=== PATIENT | female | born 1945 | race Caucasian/White ===

== ENCOUNTER 2017-05-16 11:15 | Inpatient (IN) | payer MEDICARE, MEDICAID ==
[~2017-05-16] VITALS: Ht 165.1 cm; Wt 74.8 kg
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
--- NOTE | 2017-05-16 11:30 | NUR ---
EKG IN PROGRESS
--- NOTE | 2017-05-16 11:40 | NUR ---
XRAY AT BS
[2017-05-16 11:45] LABS: BASOPHILS # (AUTO) 0.1 /CMM (0.0-0.2); BASOPHILS % (AUTO) 1.5 % (0.0-2.0); EOSINOPHILS # (AUTO) 0.1 /CMM (0.0-0.7); EOSINOPHILS % (AUTO) 1.4 % (0.0-6.0); HEMATOCRIT 41 % (33-45); HEMOGLOBIN 13.9 g/dL (11.5-14.8); LYMPHOCYTES % (AUTO) 31.6 % (20.0-44.0); MEAN CORPUSCULAR HEMOGLOBIN 29 PG (26.0-33.0); MEAN CORPUSCULAR HGB CONC 34 g/dl (31.0-36.0); MEAN CORPUSCULAR VOLUME 86 fL (82-100); MONOCYTES # (AUTO) 0.5 /CMM (0.1-1.30); MONOCYTES % (AUTO) 5.7 % (2.0-12.0); NEUTROPHILS # (AUTO) 5.9 /CMM (1.8-8.9); NEUTROPHILS % (AUTO) 59.8 % (43.0-81.0); PLATELET COUNT (AUTO) 222 /CMM (150-450); RDW COEFFICIENT OF VARIATION 11.9 (11.5-15.0); RED BLOOD CELL COUNT(AUTO) 4.78 MIL/uL (4.0-5.2); WHITE BLOOD COUNT (AUTO) 9.6 K/uL (4.3-11.0)
[2017-05-16 11:59] LABS: ALANINE AMINOTRANSFERASE 26 U/L (12-78); ALBUMIN 3.5 g/dL (3.4-5.0); ALKALINE PHOSPHATASE 69 U/L (46-116); ASPARTATE AMINOTRANSFERASE 18 U/L (15-37); BILIRUBIN,DIRECT 0.1 mg/dL (0.0-0.2); BILIRUBIN,TOTAL 0.3 mg/dL (0.2-1.0); CALCIUM, SERUM 9.1 mg/dL (8.5-10.1); CARBON DIOXIDE 25 mmol/L (21-32); CHLORIDE 104 mmol/L (98-107); CREATININE 0.6 mg/dL (0.6-1.3); GLUCOSE 124 mg/dL (74-106); POTASSIUM 3.9 mmol/L (3.5-5.1); SODIUM SERUM 138 mmol/L (136-145); TOTAL PROTEIN, SERUM 6.8 g/dL (6.4-8.2); UREA NITROGEN, BLOOD 13 mg/dL (7-18)
[2017-05-16 12:00] LABS: TROPONIN I 0.022 ng/mL (0.00-0.056)
[2017-05-16 12:01] LABS: PROTHROMBIN TIME 10.4 SECS (9.5-12.7)
[2017-05-16] MEDS ORDERED: CLON0.1T PO (13:04)
[2017-05-16] MEDS ORDERED: SUCR1TAB PO (13:04)
[2017-05-16] MEDS ORDERED: NEBI10TA2 PO (13:04)
[2017-05-16] MEDS ORDERED: TEMA30CA PO (13:04)
[2017-05-16] MEDS ORDERED: CYCL30DR EACHEYE (13:04)
[2017-05-16] MEDS ORDERED: MECL-102 PO (13:04)
[2017-05-16] MEDS ORDERED: PREG50CA PO (13:04)
[2017-05-16] MEDS ORDERED: CLON1TAB4 PO (13:04)
[2017-05-16] MEDS ORDERED: AMYL1CAP63 PO (13:04)
[2017-05-16] MEDS ORDERED: TRAZ-144 PO (13:04)
[2017-05-16] MEDS ORDERED: RANI150T8 PO (13:04)
[2017-05-16] MEDS ORDERED: ESOM40CA PO (13:04)
[2017-05-16] MEDS ORDERED: LUBI24CA7 PO (13:04)
[2017-05-16] MEDS ORDERED: GABA-534 PO (13:04)
[2017-05-16] MEDS ORDERED: OLME1TAB2 PO (13:05)
--- NOTE | 2017-05-16 13:11 | NUR ---
MD GALLARDO AT BEDSIDE
[2017-05-16] MEDS ORDERED: ACETAMINOPHEN 325 MG TABLET PO PRN ×2 (14:00→14:30)
[2017-05-16] MEDS ORDERED: NITROGLYCERIN 0.4 MG/TAB BOTTLE SL PRN ×2 (14:00→14:30)
[2017-05-16] MEDS ORDERED: MORPHINE SULFATE INJ 2 MG/ML DISP.SYRIN IV PRN ×2 (14:00→14:30)
[2017-05-16] MEDS ORDERED: Z GUARD REMEDY 2 OZ OINT TP PRN ×2 (14:00→14:30)
[2017-05-16] MEDS ORDERED: MAG HYDROX/AL HYDROX/SIMETH 30 ML UDC PO PRN ×2 (14:00→14:30)
[2017-05-16] MEDS ORDERED: HYDROCODONE/APAP 5/325MG 1 EACH TABLET PO PRN (14:00)
[2017-05-16] MEDS ORDERED: ONDANSETRON HCL/PF 4 MG/2 ML VIAL IVP PRN ×2 (14:00→14:30)
[2017-05-16] MEDS ORDERED: LOSARTAN/HCTZ 50-12.5MG/ 1 EA TABLET PO ONE (14:00)
[2017-05-16] MEDS ORDERED: ZOLPIDEM TARTRATE 5 MG TABLET PO PRN ×2 (14:00→14:30)
[2017-05-16] MEDS ORDERED: MAGNESIUM HYDROXIDE 30 ML UDC PO PRN ×2 (14:00→14:30)
[2017-05-16] MEDS ORDERED: CLONIDINE HCL 0.1 MG TABLET PO PRN ×2 (14:00→14:30)
--- NOTE | 2017-05-16 14:19 | NUR ---
REPORT GIVEN TO ALE VELA FOR CONTINUITY OF CARE.
--- NOTE | 2017-05-16 14:39 | NUR ---
PATIENT TRANSPORTED TO TELE1. S
[2017-05-16 14:45] VITALS: BP 145/77
[2017-05-16] MEDS: PREGABALIN 25 MG CAPSULE PO SCH (15:00)
--- NOTE | 2017-05-16 15:00 | NUR ---
RN NOTES RECEIVED PATIENT IN BED ALERT, AWAKE, ORIENTED X4 WITH BREATHING NORMAL, EVEN AND UNLABORED. NO SOB NOTED. NO ACUTE DISTRESS NOTED. ON ROOM AIR, SATURATING WELL. TELE MONITOR REVEALS SR, HR =65. IV RAC IS PATENT AND INTACT, NO INFILTRATION NOTED. BOWEL SOUND PRESENT. PULSES PRESENT. SAFETY MEASURE OBSERVED. CALL LIGHT WITH IN REACH. WILL CONT TO MONITOR.
[2017-05-16] MEDS: HYDROCODONE/APAP 5/325MG 1 EACH TABLET PO PRN (15:08)
[2017-05-16] MEDS ORDERED: HYDROCHLOROTHIAZIDE 25 MG TABLET PO SCH (15:10)
[2017-05-16 16:00] VITALS: BP 145/77
[2017-05-16] MEDS: MECLIZINE HCL 25 MG TABLET PO SCH (16:16)
[2017-05-16] MEDS: LOSARTAN/HCTZ 50-12.5MG/ 1 EA TABLET PO SCH (16:16)
[2017-05-16] MEDS: GABAPENTIN 300 MG CAPSULE PO SCH (16:16)
[2017-05-16] MEDS ORDERED: Medication Not On Formulary EA (Lubiprostone (Amitiza) 24 MCG) PO SCH (17:00)
[2017-05-16] MEDS ORDERED: clonazePAM 1 MG TABLET PO SCH ×2 (17:00)
[2017-05-16] MEDS ORDERED: MECLIZINE HCL 25 MG TABLET PO SCH (17:00)
[2017-05-16] MEDS ORDERED: Medication Not On Formulary EA (Cyclosporine (Restasis) 1 DROP) EACHEYE SCH (17:00)
[2017-05-16] MEDS ORDERED: GABAPENTIN 300 MG CAPSULE PO SCH (17:00)
[2017-05-16] MEDS: LIPASE/PROTEASE/AMYLASE 1 EACH CAPSULE.DR PO SCH (19:11)
--- NOTE | 2017-05-16 19:20 | NUR ---
RN NOTES RECEIVED PATIENT IN BED AWAKE, ALERT/ORIENTED X4. VERBALLY RESPONSIVE. RESPIRATION IS NORMAL, EVEN AND UNLABORED. NO SOB NOTED. NO ACUTE DISTRESS NOTED. ON ROOM AIR, SATURATING WELL. TELE MONITOR REVEALS SR, HR :66. IV SITE ON RAC PATENT AND INTACT, NO INFILTRATION NOTED. SKIN IS INTACT. SAFETY MEASURES OBSERVED. CALL LIGHT WITH IN REACH. ALL NEEDS ATTENDED AND MET. CALL LIGHT WITHIN REACH WILL CONT TO MONITOR.
--- NOTE | 2017-05-16 19:36 | NUR ---
RN NOTES PATIENT ENDORSED TO NEXT SHIFT IN STABLE CONDITION FOR CONTINUITY OF CARE.
[2017-05-16 20:00] VITALS: BP 146/73
[2017-05-16] MEDS: clonazePAM 1 MG TABLET PO SCH (21:00)
[2017-05-16] MEDS: FAMOTIDINE (20 MG) 20 MG TABLET PO SCH (21:01)
[2017-05-16] MEDS: SUCRALFATE 1 G TABLET PO SCH (21:02)
[2017-05-17] VITALS: BP 130/55
--- NOTE | 2017-05-17 02:33 | NUR ---
PT ASLEEP AT THIS TIME. AROUSES EASILY. NO DISTRESS, NO SOB NOTED. NO C/O PAIN OR DISCOMFORT AT THIS TIME. CALL LIGHT WITHIN REACH. ALL NEEDS ATTENDED AND MET. SAFETY PRECAUTIONS OBSERVED. WILL CONT TO MONITOR.
[2017-05-17 04:00] VITALS: BP 131/70
--- NOTE | 2017-05-17 06:26 | NUR ---
RN NOTES PATIENT IN BED ASLEEP, AROUSES EASILY, ALERT/ORIENTED X4. VERBALLY RESPONSIVE. RESPIRATION IS EVEN AND UNLABORED. NO SOB NOR NO ACUTE DISTRESS NOTED. ON ROOM AIR, SATURATING WELL. TELE MONITOR REVEALS SR, HR :71 . IV SITE ON RAC PATENT AND INTACT, NO INFILTRATION NOTED. SKIN IS INTACT. PT IS AMBULATORY. SAFETY PRECAUTIONS OBSERVED. NO C/O PAIN OR DISCOMFORT. CALL LIGHT WITH IN REACH. ALL NEEDS ATTENDED AND MET. CALL LIGHT WITHIN REACH WILL ENDORSE TO NEXT SHIFT FOR ARIANA.
[2017-05-17] MEDS ORDERED: PANTOPRAZOLE 40 MG TABLET.DR PO SCH (07:30)
[2017-05-17 08:00] VITALS: BP 125/74
[2017-05-17] MEDS: LIPASE/PROTEASE/AMYLASE 1 EACH CAPSULE.DR PO SCH ×3 (08:35→17:50)
[2017-05-17] MEDS: PANTOPRAZOLE 40 MG TABLET.DR PO SCH (08:36)
[2017-05-17] MEDS: LOSARTAN/HCTZ 50-12.5MG/ 1 EA TABLET PO SCH (08:37)
[2017-05-17] MEDS: SUCRALFATE 1 G TABLET PO SCH ×4 (08:37→21:40)
[2017-05-17] MEDS: clonazePAM 1 MG TABLET PO SCH ×5 (08:38→21:41)
[2017-05-17] MEDS: ASPIRIN 81 MG TAB.CHEW PO SCH (08:39)
[2017-05-17] MEDS: MECLIZINE HCL 25 MG TABLET PO SCH ×3 (08:39→17:50)
[2017-05-17] MEDS: FAMOTIDINE (20 MG) 20 MG TABLET PO SCH ×2 (08:39→21:40)
[2017-05-17] MEDS: GABAPENTIN 300 MG CAPSULE PO SCH ×2 (08:40→17:00)
[2017-05-17] MEDS: PREGABALIN 25 MG CAPSULE PO SCH (08:40)
[2017-05-17] MEDS: TRAZODONE 50 MG TABLET PO SCH (08:40)
[2017-05-17] MEDS ORDERED: TRAZODONE 50 MG TABLET PO SCH (09:00)
[2017-05-17] MEDS ORDERED: ASPIRIN 81 MG TAB.CHEW PO SCH (09:00)
[2017-05-17] MEDS ORDERED: SUCRALFATE 1 G TABLET PO SCH ×2 (09:00)
[2017-05-17 09:54] LABS: THYROID STIMULATING HORMONE 2.471 uIU/mL (0.358-3.74)
[2017-05-17] MEDS: ATORVASTATIN 10 MG TABLET PO SCH (11:08)
[2017-05-17 12:00] VITALS: BP 143/84
[2017-05-17 16:00] VITALS: BP 145/76
[2017-05-17 20:00] VITALS: BP 127/80
[2017-05-18 04:00] VITALS: BP 129/76
[2017-05-18 06:58] LABS: BASOPHILS # (AUTO) 0.1 /CMM (0.0-0.2); BASOPHILS % (AUTO) 0.5 % (0.0-2.0); EOSINOPHILS # (AUTO) 0.1 /CMM (0.0-0.7); HEMATOCRIT 44 % (33-45); LYMPHOCYTES # (AUTO) 3.4 /CMM (0.8-4.8); LYMPHOCYTES % (AUTO) 33.2 % (20.0-44.0); MEAN CORPUSCULAR HEMOGLOBIN 29 PG (26.0-33.0); MEAN CORPUSCULAR HGB CONC 34 g/dl (31.0-36.0); MEAN CORPUSCULAR VOLUME 86 fL (82-100); MONOCYTES # (AUTO) 0.6 /CMM (0.1-1.30); MONOCYTES % (AUTO) 5.5 % (2.0-12.0); NEUTROPHILS % (AUTO) 59.8 % (43.0-81.0); PLATELET COUNT (AUTO) 207 /CMM (150-450); RDW COEFFICIENT OF VARIATION 12.7 (11.5-15.0); RED BLOOD CELL COUNT(AUTO) 5.14 MIL/uL (4.0-5.2); WHITE BLOOD COUNT (AUTO) 10.1 K/uL (4.3-11.0)
--- NOTE | 2017-05-18 07:20 | NUR ---
MS RN RECEIVED ON BED, AWAKE,ALERT,ORIENTED X4,NOT IN ANY FORM OF DISTRESS, RESPIRATIONS EVEN AND UNLABORED,NO SOB NOTED. LUNGS ARE CLEAR,ABDOMEN SOFT,POSITIVE BOWEL SOUNDS, DENIES PAIN AT THIS TIME, WILL MONITOR PATIENT'S CONDITION.
[2017-05-18] MEDS: PANTOPRAZOLE 40 MG TABLET.DR PO SCH (07:30)
[2017-05-18 07:32] LABS: CALCIUM, SERUM 9.1 mg/dL (8.5-10.1); CARBON DIOXIDE 26 mmol/L (21-32); CHLORIDE 107 mmol/L (98-107); CREATININE 0.7 mg/dL (0.6-1.3); GLUCOSE 132 mg/dL (74-106); SODIUM SERUM 143 mmol/L (136-145); UREA NITROGEN, BLOOD 16 mg/dL (7-18)
[2017-05-18 08:00] VITALS: BP 123/66
[2017-05-18] MEDS: LIPASE/PROTEASE/AMYLASE 1 EACH CAPSULE.DR PO SCH ×2 (08:00→13:00)
[2017-05-18] MEDS ORDERED: REGADENOSON 0.4 MG/5 ML DISP.SYRIN IVP ONE (08:00)
--- NOTE | 2017-05-18 09:00 | NUR ---
MS RN PATIENT ON NPO FOR STRESS TEST, WAS SEEN BY DR. VÁSQUEZ AT THIS TIME.
--- NOTE | 2017-05-18 09:30 | NUR ---
MS RN PATIENT WENT DOWN FOR PROCEDURE, STRESS TEST.
[2017-05-18] MEDS: HYDROCODONE/APAP 5/325MG 1 EACH TABLET PO PRN ×2 (09:41→09:51)
--- NOTE | 2017-05-18 10:30 | NUR ---
MS ALE PT CAME BACK, BREAKFAST SERVED. DUE MEDS GIVEN, TOLERATED WELL. WILL BE DISCHARGE SOON IF STRESS TEST IS NORMAL.
[2017-05-18 11:19] VITALS: BP 123/66
[2017-05-18] MEDS: TRAZODONE 50 MG TABLET PO SCH (11:42)
[2017-05-18] MEDS: PREGABALIN 25 MG CAPSULE PO SCH (11:43)
[2017-05-18] MEDS: MECLIZINE HCL 25 MG TABLET PO SCH ×2 (11:43→13:00)
[2017-05-18] MEDS: GABAPENTIN 300 MG CAPSULE PO SCH (11:43)
[2017-05-18] MEDS: FAMOTIDINE (20 MG) 20 MG TABLET PO SCH (11:43)
[2017-05-18] MEDS: ATORVASTATIN 10 MG TABLET PO SCH (11:43)
[2017-05-18] MEDS: SUCRALFATE 1 G TABLET PO SCH ×2 (11:43→13:00)
[2017-05-18] MEDS: ASPIRIN 81 MG TAB.CHEW PO SCH (11:43)
[2017-05-18] MEDS: clonazePAM 1 MG TABLET PO SCH ×2 (11:44→13:00)
[2017-05-18] MEDS: LOSARTAN/HCTZ 50-12.5MG/ 1 EA TABLET PO SCH (11:44)
[2017-05-18 12:00] VITALS: BP 148/90
--- NOTE | 2017-05-18 12:30 | NUR ---
MS RN WAS SEEN BY DR. VÁSQUEZ AGAIN, STRESS TEST NEGATIVE, WILL DISCHARGE PATIENT.
[2017-05-18 12:33] VITALS: BP 148/90
--- NOTE | 2017-05-18 13:00 | NUR ---
MS RN PATIENT REFUSED MEDS DUE TO PATIENT JUST TOOK MORNING MEDS.
--- NOTE | 2017-05-18 14:30 | NUR ---
MS [employer]ELD [employer] SUPERVISOR INSTRUCTIONS GIVEN AND UNDERSTOOD, PATIENT WENT HOME ACCOMPANIED BY , ALL NEEDS ATTENDED.
== END 2017-05-18 14:30 | disposition home or self-care (01) | DRG 303 ==
LOC: ER 11:17 → TELE1 14:30 → MEDSG1 05-17 12:54
PROVIDERS: ADMIT Family Medicine; ATTEND Family Medicine
DX: I25.10 Atherosclerotic heart disease of native coronary artery without angina pectoris (principal); G62.9 Polyneuropathy, unspecified; I11.9 Hypertensive heart disease without heart failure; K21.9 Gastro-esophageal reflux disease without esophagitis; E78.5 Hyperlipidemia, unspecified; F41.8 Other specified anxiety disorders; Z87.891 Personal history of nicotine dependence
CPT/HCPCS: 36415; 71010-TC; 80048-TC; 80061-TC; 80076-TC; 82306; 84439-TC; 84443-TC; 84484-TC; 85025-TC; 85730-TC; 87081-TC; 93307-TC; A4606; A9502; J2785; J8597; Z7610

== ENCOUNTER 2021-02-11 12:35 | Emergency (ER) | payer MEDICARE, OTHER ==
[~2021-02-11] VITALS: Ht 165.1 cm; Wt 64.0 kg
[~2021-02-11 12:35] MED LIST: AMYL1CAP63 PO; CLON0.1T PO; CLON1TAB12 PO; CYCL30DR EACHEYE; ESOM40CA PO; GABA-534 PO; LUBI24CA5 PO; MECL-159 PO; NEBI10TA2 PO; OLME1TAB19 PO; PREG50CA PO; RANI150T8 PO; SUCR1TAB PO; TEMA30CA PO; TRAZ-182 PO
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
[2021-02-11] MEDS ORDERED: HYDR-3980 PO (13:39)
--- NOTE | 2021-02-11 13:52 | NUR ---
Patient discharged to home in stable condition. Written and verbal after care instructions given. Patient verbalizes understanding of instruction.Pt ambulatory with a steady gait
--- NOTE | 2021-02-11 13:52 | NUR ---
pt picked up by daughter
[2021-02-11 13:54] VITALS: BP 152/89
== END 2021-02-11 13:54 | disposition home or self-care (01) ==
LOC: ER 12:37
DX: S20.219A Contusion of unspecified front wall of thorax, initial encounter (principal); G43.909 Migraine, unspecified, not intractable, without status migrainosus; I10 Essential (primary) hypertension; K21.9 Gastro-esophageal reflux disease without esophagitis; Z79.899 Other long term (current) drug therapy; V49.69XA Unspecified car occupant injured in collision with other motor vehicles in traffic accident, initial encounter; Y93.89 Activity, other specified; Y92.413 State road as the place of occurrence of the external cause; Y99.8 Other external cause status
CPT/HCPCS: 71045-TC